=== PATIENT | male | born 1965 | race African-American/Black ===

== ENCOUNTER 2018-01-13 09:59 | Emergency (ER) | payer OTHER ==
[~2018-01-13] VITALS: Ht 172.7 cm; Wt 68.0 kg
--- NOTE | 2018-01-13 12:00 | Diagnostic Imaging Report ---
Exam: Left toes History: Left great toe pain for one week after trauma. History of infection 10 years ago on greater toe Comparison: None. Findings: There is normal bone mineralization. No acute, displaced fracture or dislocation. Status post amputation of the first toe at the level of the base of the distal phalanx . Cortical surfaces are intact, without erosion or destruction. Mild degenerative changes in the first toe metatarsophalangeal joint, with mild subluxation and hallux valgus deformity. Vascular calcifications.. No significant soft tissue swelling. Impression: 1. No acute, displaced fracture or dislocation. Status post amputation of the first toe at the level of the base of the distal phalanx, without cortical erosion or destruction. 2. Degenerative changes in the first metatarsophalangeal joint, with subluxation and hallux valgus deformity. Signed by: Dr. Mauricio Ibarra M.D. on 01/13/2018 11:57 AM
== END 2018-01-13 12:38 | disposition home or self-care (01) ==
LOC: FSED 09:59
DX: L60.0 Ingrowing nail (principal); E11.9 Type 2 diabetes mellitus without complications; R62.50 Unspecified lack of expected normal physiological development in childhood; F32.9 Major depressive disorder, single episode, unspecified
CPT/HCPCS: 99283